=== PATIENT | male | born 1960 ===

== ENCOUNTER 2021-07-26 10:00 | Outpatient (CLI) | payer OTHER | END 2021-07-26 10:15 | disposition home or self-care (01) | LOC: PPH VACUNA 10:00 | PROVIDERS: ATTEND Emergency Medicine Pediatric Emergency Medicine | DX: Z23 Encounter for immunization (principal) ==

== ENCOUNTER 2022-07-03 09:07 | Outpatient (CLI) | payer OTHER | END 2022-07-03 09:12 | disposition home or self-care (01) | LOC: PPH VACUNA 09:07 | PROVIDERS: ATTEND Emergency Medicine Pediatric Emergency Medicine | DX: Z23 Encounter for immunization (principal) ==